=== PATIENT | male | born 1940 | race Caucasian/White ===

== ENCOUNTER 2017-12-01 05:00 | Outpatient (CLI) | payer MEDICARE, OTHER ==
[~2017-12-01 05:00] MED LIST: HYDR-565 PO
== END 2017-12-01 23:59 | disposition home or self-care (01) ==
LOC: DIABETIC 05:00
PROVIDERS: ATTEND Specialist
DX: E11.9 Type 2 diabetes mellitus without complications (principal); I10 Essential (primary) hypertension; Z85.46 Personal history of malignant neoplasm of prostate
CPT/HCPCS: G0108

== ENCOUNTER 2018-06-01 02:09 | Outpatient (CLI) | payer MEDICARE, OTHER | END 2018-06-01 23:59 | disposition home or self-care (01) | LOC: DIABETIC 02:09 | PROVIDERS: ATTEND Specialist | DX: E11.65 Type 2 diabetes mellitus with hyperglycemia (principal); I10 Essential (primary) hypertension; Z79.82 Long term (current) use of aspirin; Z79.899 Other long term (current) drug therapy; Z85.46 Personal history of malignant neoplasm of prostate | CPT/HCPCS: G0108 ==

== ENCOUNTER 2018-08-10 10:10 | Emergency (ER) | payer MEDICARE, OTHER ==
[~2018-08-10] VITALS: Ht 185.4 cm; Wt 85.9 kg
[~2018-08-10 10:10] MED LIST changes: +HYDR-4353 PO; -HYDR-565 PO
[2018-08-10 11:10] VITALS: BP 158/80
[2018-08-10] MEDS ORDERED: RIVA15TA PO (11:16)
[2018-08-10] MEDS ORDERED: rivaroxaban 20mg tablet PO ONE (11:20)
== END 2018-08-10 11:35 | disposition home or self-care (01) ==
LOC: ER 10:10
DX: I82.4Z1 Acute embolism and thrombosis of unspecified deep veins of right distal lower extremity (principal); E78.00 Pure hypercholesterolemia, unspecified; I10 Essential (primary) hypertension; E11.9 Type 2 diabetes mellitus without complications; Z87.442 Personal history of urinary calculi; Z98.890 Other specified postprocedural states; Z88.2 Allergy status to sulfonamides
CPT/HCPCS: 93971; 99284

== ENCOUNTER 2018-11-30 02:41 | Outpatient (CLI) | payer MEDICARE, OTHER ==
[~2018-11-30 02:41] MED LIST changes: +RIVA15TA PO
== END 2018-11-30 23:59 | disposition home or self-care (01) ==
LOC: DIABETIC 02:41
PROVIDERS: ATTEND Specialist
DX: E11.65 Type 2 diabetes mellitus with hyperglycemia (principal); I10 Essential (primary) hypertension; Z79.82 Long term (current) use of aspirin; Z79.84 Long term (current) use of oral hypoglycemic drugs
CPT/HCPCS: G0108

== ENCOUNTER 2019-05-17 08:00 | Outpatient (CLI) | payer MEDICARE, OTHER | END 2019-05-17 23:59 | disposition home or self-care (01) | LOC: DIABETIC 08:00 | PROVIDERS: ATTEND Specialist | DX: E11.65 Type 2 diabetes mellitus with hyperglycemia (principal); I10 Essential (primary) hypertension; Z79.84 Long term (current) use of oral hypoglycemic drugs; Z79.899 Other long term (current) drug therapy; Z79.82 Long term (current) use of aspirin | CPT/HCPCS: G0108 ==

== ENCOUNTER 2019-08-16 03:54 | Outpatient (CLI) | payer MEDICARE | END 2019-08-16 23:59 | disposition home or self-care (01) | LOC: DIABETIC 03:54 | PROVIDERS: ATTEND Specialist | DX: E11.65 Type 2 diabetes mellitus with hyperglycemia (principal); I10 Essential (primary) hypertension; Z79.84 Long term (current) use of oral hypoglycemic drugs; Z79.82 Long term (current) use of aspirin; Z79.899 Other long term (current) drug therapy | CPT/HCPCS: G0108 ==

== ENCOUNTER 2019-11-15 04:32 | Outpatient (CLI) | payer MEDICARE | END 2019-11-15 23:59 | disposition home or self-care (01) | LOC: DIABETIC 04:32 | PROVIDERS: ATTEND Specialist | DX: E11.65 Type 2 diabetes mellitus with hyperglycemia (principal) | CPT/HCPCS: G0108 ==